=== PATIENT | male | born 1960 | race Caucasian/White ===

== ENCOUNTER 2022-01-10 08:36 | Outpatient (CLI) | payer OTHER, SELFPAY ==
[2022-01-10 11:09] LABS: Cholesterol* 179 mg/dL (90-199); Triglycerides* 89 mg/dL (40-149)
[2022-01-10 11:10] LABS: HDL Cholesterol* 57 mg/dL (>=40); LDL Cholesterol Calculated 104 mg/dL (<100)
== END 2022-01-10 08:37 | disposition home or self-care (01) ==
LOC: NFLDREF 08:41
PROVIDERS: PCP Family Medicine; Visit Provider Family Medicine
DX: E78.5 Hyperlipidemia, unspecified (principal)
CPT/HCPCS: 80061

== ENCOUNTER 2022-01-10 08:36 | Outpatient (CLI) | payer OTHER, SELFPAY ==
[2022-01-10 20:42] LABS: Chloride* 105 mmol/L (96-114); Sodium* 139 mmol/L (135-149)
[2022-01-10 20:43] LABS: Potassium* 4.2 mmol/L (3.6-5.1)
[2022-01-10 20:45] LABS: Alkaline Phosphatase* 73 U/L (40-150); Aspartate Amino Transferase* 34 U/L (12-35); Bilirubin Total* 0.8 mg/dL (0.1-1.5); Blood Urea Nitrogen* 16 mg/dL (7-30); Carbon Dioxide* 29 mmol/L (20-32); Estimated Glomerular Filt Rate 86.16; Total Protein* 6.3 g/dL (6.0-8.3)
[2022-01-10 20:46] LABS: Alanine Aminotransferase* 30 U/L (4-50); Glucose* 93 mg/dL (60-115)
[2022-01-10 21:18] LABS: PSA Screen* 4.18 ng/mL (0.10-4.00)
[2022-01-10 22:04] LABS: Free T4 Free Thyroxine* 1.52 ng/dL (0.70-1.85)
== END 2022-01-10 08:37 | disposition home or self-care (01) ==
PROVIDERS: PCP Family Medicine; Visit Provider Family Medicine
DX: E78.5 Hyperlipidemia, unspecified (principal); N40.0 Benign prostatic hyperplasia without lower urinary tract symptoms; R97.20 Elevated prostate specific antigen [PSA]; E03.9 Hypothyroidism, unspecified
CPT/HCPCS: 36415; 80053; 84153; 84439; 84443

== ENCOUNTER 2022-05-11 09:03 | Outpatient (CLI) | payer OTHER, SELFPAY ==
--- OUTSIDE RECORDS SUMMARY | 2022-05-11 13:13 | XMS_ITS | Clinical Summary ---
:1960 Author Organization [facility] [place] [address] Care Team Providers Name Role Phone Unavailable Primary Care Provider Unavailable Allergies Not on File Medications Not on file Active Problems Not on file Social History Tobacco Use Types Packs/Day Years Used Date Never Assessed Sex Assigned at Date Recorded Not on file Plan of Treatment Not on file Results Not on filefrom Last 3 Months
[2022-05-11 17:22] LABS: Free T4 Free Thyroxine* 1.15 ng/dL (0.70-1.85)
== END 2022-05-11 09:04 | disposition home or self-care (01) ==
LOC: NFLDREF 13:11
PROVIDERS: PCP Family Medicine; Visit Provider Family Medicine
DX: E03.9 Hypothyroidism, unspecified (principal)
CPT/HCPCS: 84439; 84443

== ENCOUNTER 2023-01-07 08:25 | Outpatient (CLI) | payer OTHER, SELFPAY | END 2023-01-07 08:26 | disposition home or self-care (01) | LOC: NFLDREF 14:20 | PROVIDERS: PCP Family Medicine; Referring Provider Family Medicine; Visit Provider Family Medicine | DX: N40.0 Benign prostatic hyperplasia without lower urinary tract symptoms (principal); E78.5 Hyperlipidemia, unspecified; E03.9 Hypothyroidism, unspecified | CPT/HCPCS: 80053; 80061; 84153; 84443 ==

== ENCOUNTER 2023-12-19 08:50 | Outpatient (CLI) | payer OTHER, SELFPAY ==
--- OUTSIDE RECORDS SUMMARY | 2023-12-23 18:00 | XMS_ITS | Continuity of Care Document ---
Author Organization [facility] Address [address] [address] [place] [address] Phone Care Team Providers Care Office Support Associate Name Role Phone Baltazar Rueda MD Unavailable Unavailable Allergies, Adverse Reactions, Alerts Substance Reaction Status Criticality No Known Allergies Active No Inform ation Medications Medication Instructions Dosage Effective Dates (start - stop) Status Comments MiralaxBisacodylMagCit Colon Prep Use as directed - No Longer Active Procedures Procedure Date Colonoscopy Flex; Dx (sep Pro) 14 Advance Directives Directive Yes / No Effective Date File Name No Information Encounters Encounter Description Practice Location Reason(s) For Visit Diagnoses Date Provider Providers Copied on Encounter [facility], [address] [address], [place], [place], [id number], [place] tel:[phone] [facility] Colon Ca screeningHemorrh oidsColon Cancer ScreeningHemorrh oids [address] Mohit Ledesma. [address] [facility], [facility] [address], [place], [place], [id number] , [place]. tel:[phone] Referring Provider: John Mccoy MD C, [address] [place], [address]. tel:[phone] [facility], [address] [address], [place], [place], [id number], [place] tel:[phone] [facility] External Referral 4 Hermelindo Palma. [address] [facility], [place], [place], [id number] , [place]. [phone] Referring Provider: John Mccoy MD C, [address] [place], [address]. tel:[phone] Family History Family Member Type Diagnosis Age At Onset Brother Problem (finding) Alive and well Mother Problem (finding) cancer of colon Daughter Problem (finding) Alive and well Father Problem (finding) Sister Problem (finding) Alive and well Mother Problem (finding) Crohn's disease Mother Problem (finding) diverticulitis of colon Mother Problem (finding) Colon polyps Mother Problem (finding) Irritable bowel disease Son Problem (finding) Alive and well Payers Payer name Insurance type Covered constitution party ID Authoriza timatti(s) [employer] [facility] [id number] Social History Type Description Quantity Date Captured Comments Alcohol Use Details Unknown Caffeine Use Details Unknown Tobacco Use Status No Information Smoking Status Never smoker Sex Male Vital Signs Date / Time: Height Weight BMI Pulse Rate Blood Pressure Temperature Respiratory Rate Body Surface Area Head Circumference Head Circ. Percentile Wt./Shahram. Percentile BMI percentile Pulse Ox Inhaled Ox 72.00 in 97.960 kg (216.00 lbs) 29.3 0 kg/m eter (2) 70 /min 122/74 mm[Hg] 0.00 F 18 /min 97 % Chief Complaint And Reason For Visit No Information Reason For Referral Reason For Referral No Information History Of Present Illness Encounter Date Complaint History Of Prese nt Illness No Information Functional Status Date Functional Assessmen t No Information Medications Administered Medication Instructions Dosage Effective Dates (start - stop) Status Comments No Drug Therapy Prescribed Instructions Date Instruction Additional Infor mation Colon Cancer Prevention Related to Colon Ca screening Diverticulosis/Diverticulitis Re lated to Colon Ca screening Hemorrhoids Related to Colon Ca screening high fiber diet Related to Colon Ca screening Assessments Type Assessment Date assessment Colon Ca screening assessment Hemorrhoids Patient Care Teams Name Effective Dates (start - stop) Status Members No Information
--- OUTSIDE RECORDS SUMMARY | 2023-12-23 18:00 | XMS_ITS | Clinical Summary ---
Author Organization [facility] Address [place], [place] [address] Care Team Providers Care Speedboat Operator Name Role Phone Unavailable Primary Care Provider Unavailabl e Social History Tobacco Use Types Packs/Day Years Used Date Smoking Tobacco: Never Assessed Sex and Gender Information Value Date Recorded Sex Assigned at Not on file Gender Identity Not on file Sexual Orientation Not on file Plan of Treatment Not on file
== END 2023-12-19 08:51 | disposition home or self-care (01) ==
LOC: NFLDREF 12-23 17:59
PROVIDERS: PCP Family Medicine; Referring Provider Family Medicine; Visit Provider Family Medicine
DX: Z00.00 Encounter for general adult medical examination without abnormal findings (principal); E78.5 Hyperlipidemia, unspecified; E03.9 Hypothyroidism, unspecified; R97.20 Elevated prostate specific antigen [PSA]; Z13.9 Encounter for screening, unspecified
CPT/HCPCS: 80053; 80061; 84439; 84443; G0103

== ENCOUNTER 2024-12-25 07:43 | Outpatient (CLI) | payer OTHER, SELFPAY | END 2024-12-25 07:44 | disposition home or self-care (01) | LOC: NFLDREF 12-28 15:41 | PROVIDERS: PCP Internal Medicine; Referring Provider Internal Medicine; Visit Provider Internal Medicine | DX: E78.5 Hyperlipidemia, unspecified (principal); R97.20 Elevated prostate specific antigen [PSA]; E03.9 Hypothyroidism, unspecified; Z13.9 Encounter for screening, unspecified; Z12.5 Encounter for screening for malignant neoplasm of prostate | CPT/HCPCS: 80053; 80061; 84439; 84443; G0103 ==